=== PATIENT | female | born 1960 | race Caucasian/White ===

== ENCOUNTER → 2020-06-12 | Outpatient (CLI) | payer OTHER | LOC: HEART 5 06-10 08:30 | DX: R07.9 Chest pain, unspecified (principal); I25.9 Chronic ischemic heart disease, unspecified | CPT/HCPCS: 78452; 93306; A9502; J2785 ==

== ENCOUNTER 2021-05-07 19:35 | Observation (INO) | payer BC ==
[~2021-05-07] VITALS: Ht 172.7 cm; Wt 61.7 kg
[2021-05-07 20:18] LABS: HEMOGLOBIN 14.9 gm/dl (12.3-15.3); RED BLOOD COUNT 4.79 M/UL (4.00-5.10)
[2021-05-07 21:08] LABS: BUN/CREATININE RATIO 13 (0-10)
[2021-05-08] MEDS ORDERED: ISOSORBIDE MONO30 MG PO (00:45)
[2021-05-08] MEDS ORDERED: ASPIRIN EC81 MG PO (00:45)
[2021-05-08] MEDS ORDERED: OMEPRAZOLE40 MG PO (00:46)
[2021-05-08] MEDS ORDERED: ACETAMINOPHEN500 MG PO (00:47)
[2021-05-08 04:38] LABS: HEMOGLOBIN 14.5 gm/dl (12.3-15.3); RED BLOOD COUNT 4.65 M/UL (4.00-5.10); WHITE BLOOD COUNT 7.4 K/UL (4.5-11.0)
[2021-05-08 05:00] LABS: BUN/CREATININE RATIO 10 (0-10)
[2021-05-08] MEDS ORDERED: ATORVASTATIN CA40 MG PO (15:50)
== END 2021-05-08 16:32 | disposition home or self-care (01) ==
LOC: ER1 19:35 → CDU 22:30 → M/S 22:30
PROVIDERS: Physician Assistant; ADMIT Internal Medicine
DX: R07.89 Other chest pain (principal); I16.0 Hypertensive urgency; E87.6 Hypokalemia; I73.9 Peripheral vascular disease, unspecified; E78.5 Hyperlipidemia, unspecified; I10 Essential (primary) hypertension; K21.9 Gastro-esophageal reflux disease without esophagitis; F17.200 Nicotine dependence, unspecified, uncomplicated; R91.8 Other nonspecific abnormal finding of lung field; Z98.61 Coronary angioplasty status; Z86.16 Personal history of COVID-19; Z96.89 Presence of other specified functional implants; Z88.1 Allergy status to other antibiotic agents; Z88.8 Allergy status to other drugs, medicaments and biological substances; Z79.82 Long term (current) use of aspirin; Z79.899 Other long term (current) drug therapy; Z98.51 Tubal ligation status; Z20.822 Contact with and (suspected) exposure to COVID-19
CPT/HCPCS: 71045; 80048; 80053; 80061; 82550; 82553; 83690; 84439; 84443; 84484; 85025; 93005; 99285; G0378; Q9967; U0002

== ENCOUNTER 2021-05-18 07:21 | Observation (INO) | payer BC ==
[~2021-05-18] VITALS: Ht 172.7 cm; Wt 61.2 kg
[~2021-05-18 07:21] MED LIST: ACETAMINOPHEN500 MG PO; ASPIRIN EC81 MG PO; ATORVASTATIN CA40 MG PO; ISOSORBIDE MONO30 MG PO; OMEPRAZOLE40 MG PO
[2021-05-18 07:48] LABS: RED BLOOD COUNT 5.18 M/UL (4.00-5.10); WHITE BLOOD COUNT 8.8 K/UL (4.5-11.0)
[2021-05-18 08:24] LABS: BUN/CREATININE RATIO 18 (0-10)
[2021-05-18] MEDS ORDERED: ATORVASTATIN CA40 MG PO (10:03)
[2021-05-18] MEDS ORDERED: METOPROLOL TART25 MG PO (10:04)
[2021-05-18] MEDS ORDERED: PROAIR HFA8.5 GM INH (10:04)
--- NOTE | 2021-05-18 20:02 | NUR ---
REMOVED 3ML PER PROTOCOL AND PT NOTED TO HAVE BLEEDING AT CATH SITE. PUT 6ML BACK INTO BAND. BLEEDING STOPPED FOR NOW. NOTIFIED DR LANGSTON AND SHE STATES TO WAIT FOR 1 HOUR THEN TRY TO REMOVE AGAIN.
[2021-05-19 02:42] LABS: HEMOGLOBIN 14.8 gm/dl (12.3-15.3); RED BLOOD COUNT 4.75 M/UL (4.00-5.10); WHITE BLOOD COUNT 8.6 K/UL (4.5-11.0)
[2021-05-19 02:59] LABS: BUN/CREATININE RATIO 17 (0-10)
[2021-05-19] MEDS ORDERED: ATORVASTATIN CA20 MG PO (09:21)
[2021-05-19] MEDS ORDERED: BRILINTA 90 MG90 MG PO (09:21)
== END 2021-05-19 12:12 | disposition home or self-care (01) ==
LOC: ER1 07:21 → CDU 08:48 → PROG CARE 08:48 → CDU 11:40 → M/S 11:47 → PROG CARE 18:08
PROVIDERS: Emergency Medicine; Physician Assistant; ADMIT Internal Medicine
DX: I25.110 Atherosclerotic heart disease of native coronary artery with unstable angina pectoris (principal); I10 Essential (primary) hypertension; E78.5 Hyperlipidemia, unspecified; I73.9 Peripheral vascular disease, unspecified; K21.9 Gastro-esophageal reflux disease without esophagitis; F17.210 Nicotine dependence, cigarettes, uncomplicated; Z86.16 Personal history of COVID-19; Z98.51 Tubal ligation status; Z88.1 Allergy status to other antibiotic agents; Z79.82 Long term (current) use of aspirin; Z95.828 Presence of other vascular implants and grafts; Z20.822 Contact with and (suspected) exposure to COVID-19
CPT/HCPCS: ECHO; 36415; 71045; 80048; 80053; 82550; 82553; 83735; 84484; 85025; 85347; 92978; 93005; 93306; 93571; 99152; 99153; 99285; C1725; C1753; C1769; C1874; C1887; C9600; G0378; J0153; J0461; J1644; J2250; J3010; Q9967; U0002

== ENCOUNTER 2021-05-26 07:08 | Observation (INO) | payer BC ==
[~2021-05-26] VITALS: Ht 172.7 cm; Wt 59.4 kg
[~2021-05-26 07:08] MED LIST changes: +ATORVASTATIN CA20 MG PO; +BRILINTA 90 MG90 MG PO; +METOPROLOL TART25 MG PO; +PROAIR HFA8.5 GM INH
[2021-05-26 07:44] LABS: HEMOGLOBIN 15.9 gm/dl (12.3-15.3); RED BLOOD COUNT 5.11 M/UL (4.00-5.10); WHITE BLOOD COUNT 7.8 K/UL (4.5-11.0)
[2021-05-26 08:56] LABS: BUN/CREATININE RATIO 18 (0-10)
[2021-05-26] MEDS ORDERED: NITROGLYCERIN0.4 MG SL (11:01)
[2021-05-27 06:30] LABS: HEMOGLOBIN 15.4 gm/dl (12.3-15.3); RED BLOOD COUNT 4.94 M/UL (4.00-5.10); WHITE BLOOD COUNT 7.9 K/UL (4.5-11.0)
[2021-05-27 07:08] LABS: BUN/CREATININE RATIO 14 (0-10)
[2021-05-27] MEDS ORDERED: RANEXA500 MG PO (12:01)
[2021-05-27] MEDS ORDERED: ISOSORBIDE MONO60 MG PO (12:01)
== END 2021-05-27 13:22 | disposition home or self-care (01) ==
LOC: ER1 07:08 → MED SURG 4 09:09 → CDU 09:09 → MED SURG 4 10:14
PROVIDERS: Emergency Medicine; Physician Assistant; ADMIT Internal Medicine
DX: R07.89 Other chest pain (principal); R00.2 Palpitations; I25.10 Atherosclerotic heart disease of native coronary artery without angina pectoris; I73.9 Peripheral vascular disease, unspecified; I10 Essential (primary) hypertension; E78.5 Hyperlipidemia, unspecified; K21.9 Gastro-esophageal reflux disease without esophagitis; F17.210 Nicotine dependence, cigarettes, uncomplicated; Z95.5 Presence of coronary angioplasty implant and graft; Z88.1 Allergy status to other antibiotic agents; Z91.018 Allergy to other foods; Z79.82 Long term (current) use of aspirin; Z79.899 Other long term (current) drug therapy; Z20.822 Contact with and (suspected) exposure to COVID-19
CPT/HCPCS: 36415; 71045; 80053; 82550; 82553; 82962; 84484; 85025; 93005; 93270; 99285; G0378; U0002

== ENCOUNTER → 2021-06-16 | Outpatient (CLI) | payer BC ==
[~2021-06-16] MED LIST changes: +ISOSORBIDE MONO60 MG PO; +NITROGLYCERIN0.4 MG SL; +RANEXA500 MG PO
== END ==
LOC: CARD REHAB 06-02 09:30
DX: I25.110 Atherosclerotic heart disease of native coronary artery with unstable angina pectoris (principal)
CPT/HCPCS: 93798